=== PATIENT | male | born 2000 | race Caucasian/White ===

== ENCOUNTER 2025-04-05 17:39 | Emergency (ER) | payer BC, SELFPAY ==
[2025-04-05 17:45] VITALS: BP 141/91
[2025-04-05 18:27] LABS: COVID-19 Antigen Negative (Negative)
--- NOTE | 2025-04-05 18:32 | ED.GENMED ---
History of Present Illness
General
Chief Complaint: Cold/Flu/URI Symptoms
Source: patient
Exam Limitations: none
Time Seen by Provider: 04/05/25 18:24
History of Present Illness
History of Present Illness:
See MDM
Past History
Past History
ED Past Medical History: None
ED Past Surgical History: None
Social History
Tobacco: Non-smoker
Alcohol: None
Phy Exam
Physical Exam
Physical Exam:
See MDM
Course
Orders/Labs/Results
Orders:
Orders
04/05/25 18:04
COVID-19 Antigen Urgent
Source: Nasal Swab
Influenza A+B Rapid Molecular Urgent
SHANE Source: Nasal Swab
Specimen Description:
Date Specimen was Collected: 04/05/25
Time Specimen was Collected: 17:54
Rapid Strep Group A Urgent
SHANE Source: Throat/Pharynx
Specimen Description:
Date Specimen was Collected: 04/05/25
Time Specimen was Collected: 17:54
Throat Culture [Throat Culture, Comprehensive] Urgent
SHANE Source: Throat/Pharynx
Specimen Description:
Date Specimen was Collected: 04/05/25
Time Specimen was Collected: 18:02
04/05/25 18:32
Dexamethasone Pf [Decadron] 10 mg PO NOW STA
04/05/25 18:53
Amoxicillin [Amoxil] 500 mg PO NOW STA
Vital Signs
Initial and Last Documented VS:
Initial Vital Signs
Temp Pulse Resp BP Pulse Ox
98.5 F 85 18 141/91 98
04/05/25 17:45 04/05/25 17:45 04/05/25 17:45 04/05/25 17:45 04/05/25 17:45
Last Documented Vital Signs
Temp Pulse Resp BP Pulse Ox
98.5 F 85 18 141/91 98
04/05/25 17:45 04/05/25 17:45 04/05/25 17:45 04/05/25 17:45 04/05/25 18:34
MDM/Problems Addressed
Differential Diagnosis Includes:
Note:
CHIEF COMPLAINT(S)
Sore throat and difficulty swallowing.
HISTORY OF PRESENT ILLNESS
The patient is a 24-year-old male with no known drug allergies who presents with a sore throat and difficulty swallowing. He reports that his symptoms began last week with mild cold symptoms, including a slight sore throat and cough, chills, and
fever for a few hours. These symptoms largely resolved by , except for a persistent sore throat and cough. By Thursday, he felt improved, but his sore throat returned on Thursday, worsening throughout the day and accompanied by a cough. On
Thursday morning, the symptoms were slightly better, but they worsened again by the end of the day, prompting a visit to urgent care. He was swabbed for strep throat and the test was negative. He was informed it might be a viral infection and was
advised to gargle with salt water.
PHYSICAL EXAM
General: Alert, no acute distress.
Skin: Warm, dry.
Head: Normocephalic, atraumatic
Neck: Appears supple, trachea midline.
Eyes, Ears, Nose, Mouth, and Throat: Moist mucous membranes. Posterior pharynx mildly erythematous. Uvula mildly enlarged midline
Cardiovascular: No signs of cyanosis
Respiratory: Respirations are non-labored.
Abdomen: Non-distended
Musculoskeletal: No deformities
Neurological: No focal neurological deficit observed.
Psychiatric: Cooperative, appropriate mood and affect.
PLAN
The plan is to treat the patient for uvulitis, likely caused by similar bacteria to those that cause strep throat. The patient is to receive a single dose of Dexamethasone (Decadron) in the emergency department to reduce inflammation and symptoms.
The necessity for antibiotics will depend on the results of further strep throat testing, which will include a throat culture. If the rapid strep test is negative but the culture or viral tests return positive for other causes, antibiotic treatment
may be reconsidered.
DIFFERENTIAL DIAGNOSIS
The Differential Diagnosis includes, in no particular order, and is not limited to:
- Uvulitis
- Bacterial pharyngitis
- Viral pharyngitis
- Tonsillitis
- Allergic reaction
- Mononucleosis
- Peritonsillar abscess
- Epiglottitis
- Laryngitis
- COVID-19
MEDICATION RECONCILIATION
The patient is to receive Dexamethasone (Decadron) here in the ER and may be prescribed additional steroid doses if symptoms persist. An antibiotic prescription will be considered based on pending test results.
MEDICAL DECISION MAKING
- Number and Complexity of Problems Addressed: Chronic conditions affecting care are uvulitis and sore throat.
- Data:
- Category 1: Tests and documents: Throat swab for strep, pending culture add-on.
- Category 3: Discussion of management with other healthcare providers regarding the strep throat tests and culture.
- Risk: Prescription medication was considered, as Dexamethasone (Decadron) will be administered for uvulitis, and an antibiotic may be prescribed depending on further test outcomes.
DIAGNOSIS
- Uvulitis, ICD-10: J39.2
- Sore throat, ICD-10: R07.0
SUMMARY OF ENCOUNTER
The patient, a 24-year-old male, presented to the emergency department with a severely sore throat and difficulty swallowing that persisted after initial treatment. A rapid strep test had returned negative, and the throat culture was pending. Viral
testing was negative. Clinical examination revealed a mildly enlarged uvula, suggestive of uvulitis. Due to the persistent symptoms, the management in the emergency department included starting the patient on a course of amoxicillin for likely
bacterial uvulitis and a short course of steroids to reduce inflammation.
DISPOSITION
Discharge
ASSESSMENT
The primary consideration is uvulitis, likely bacterial, given the negative viral test results and the negative rapid strep throat test.
EMERGENCY TREATMENTS ADMINISTERED
The patient was administered Dexamethasone in the emergency department to help reduce the inflammation of the uvula.
PLAN
The patient will continue treatment with a course of amoxicillin and a short course of steroids. Further care decisions will be based on the pending throat culture results.
PATIENT EDUCATION AND COUNSELING
The patient was advised on the importance of adherence to the prescribed medication regimen and was instructed to return to the emergency department if symptoms worsen or do not improve. He was made aware of the potential symptoms to watch for,
indicating a need for re-evaluation.
FOLLOW-UP INSTRUCTIONS
The patient was instructed to follow up with his primary care provider or return to the emergency department if symptoms persist or worsen.
MEDICATION RECONCILIATION
1. Amoxicillin prescribed for suspected bacterial uvulitis.
2. Dexamethasone administered in the ER and a short course of steroids prescribed for continued management.
MEDICAL DECISION MAKING
- Number and Complexity of Problems Addressed: Chronic conditions affecting care are uvulitis and sore throat, DDX includes uvulitis, bacterial pharyngitis, viral pharyngitis, tonsillitis, allergic reaction, mononucleosis, peritonsillar abscess,
epiglottitis, laryngitis, and COVID-19.
- Data:
Category 1: Tests and documents included a rapid strep test that returned negative, with a throat culture pending, and negative viral testing.
Category 3: Discussion of management with healthcare providers regarding the pending throat culture results and the initiation of antibiotic and steroid therapy.
- Risk: Prescription medication including amoxicillin and Dexamethasone was prescribed and administered.
DIAGNOSIS
- Uvulitis, ICD-10: J39.2
- Sore throat, ICD-10: R07.0
*Pulse Oximetry
SaO2: 98
Oxygen Mode of Delivery: Room air
Patient hypoxic: no
*Critical Care Note
Total Time (30-74mins, 75-104mins- exclusive of procedures): Not Applicable
ED Attending Note
-
Portions of this chart may have been created with voice recognition software.� Occasional wrong word or��sound alike� substitutions may have occurred due to the inherent limitations of voice recognition software.
Discharge Plan
Departure
Patient Disposition: Home (Routine Discharge)
Date of Disposition: 04/05/25
Time of Disposition: 18:55
Patient with high blood pressure during this ER visit?: No
Discharge Problem:
Uvulitis
Prescriptions:
New
amoxicillin 500 mg capsule
500 mg PO BID Qty: 14 0RF
prednisone 20 mg tablet
40 mg PO DAILY Qty: 10 0RF
Referrals:
Kev Foster DO [Family Provider, Family Practice]
Stand Alone Forms: Return to Work
Activity Restrictions/Additional Instructions:
Please return for any worsening symptoms.
You may return at any time if you have further concerns.
Please follow up with your doctor at the first available appointment, preferably this week.
Interventions
Interventions:
*Risk Screen - Suicide Last Done: 04/05/25 17:45
*ED COVID-19 Vaccine History Last Done: 04/05/25 17:45
*ED Influenza Vaccine History Last Done: 04/05/25 17:45
Discharge Date and Time
Print Language: STATELESS
[2025-04-05] MEDS: AMOXIL 500 MG PO (19:06)
[2025-04-05] MEDS: DECADRON 10 MG PO (19:07)
== END 2025-04-05 19:25 | disposition home or self-care (01) ==
LOC: EMR 17:39
PROVIDERS: Emergency Medicine; EMERGENCY PHYSICIAN Student in an Organized Health Care Education/Training Program; FAMILY PHYSICIAN Family Medicine
DX: K12.2 Cellulitis and abscess of mouth (principal); Z11.52 Encounter for screening for COVID-19
CPT/HCPCS: 99283; 87070; 87502; 87811; 87880